=== PATIENT | male | born 1965 | race African-American/Black ===

== ENCOUNTER 2025-07-15 14:39 | Emergency (ER) | payer MEDICARE, MEDICAID ==
[~2025-07-15] VITALS: Ht 172.7 cm; Wt 86.0 kg
[2025-07-15 14:44] VITALS: O2SAT 96
[2025-07-15 16:18] LABS: HEMATOCRIT. 48.1 % (42.0-52.0); HEMOGLOBIN. 16.3 g/dL (14.0-18.0); MEAN PLATELET VOLUME 8.7 fl (7.4-10.4); PLATELET 173 x1000/uL (130-400); RED BLOOD CELL COUNT 5.20 mill/uL (4.7-6.1); RED CELL DISTRIBUTION WIDTH 13.1 % (11.6-14.6)
[2025-07-15 16:34] LABS: CLARITY URINE CLEAR (CLEAR); COLOR URINE RED (YELLOW); GLUCOSE URINE 3+ (NEGATIVE); KETONES URINE NEGATIVE (NEGATIVE); LEUKOCYTE ESTERASE URINE NEGATIVE (NEGATIVE); NITRITE URINE NEGATIVE (NEGATIVE); OCCULT BLOOD URINE 3+ (NEGATIVE); PH URINE 6.5 (4.5-8.0); PROTEIN URINE 1+ (NEGATIVE); SPECIFIC GRAVITY URINE 1.008 (1.005-1.030); UROBILINOGEN URINE 0.2 E.U./dL (0.2-1.0)
[2025-07-15 16:35] LABS: CREATININE 1.4 mg/dL (0.6-1.3); UREA NITROGEN BLOOD 17 mg/dL (9-23)
[2025-07-15 16:36] LABS: PROTEIN TOTAL 8.1 g/dL (6.0-8.3)
[2025-07-15 16:37] LABS: ASPARTATE AMINOTRANSFERASE 35 IU/L (<34); BILIRUBIN DIRECT 0.5 mg/dL (<=3.0); BILIRUBIN TOTAL 1.6 mg/dL (0.1-1.0)
[2025-07-15 16:40] LABS: LYMPHOCYTES % MANUAL 3.0 % (20.0-50.0); MONOCYTES % MANUAL 2.0 % (2.0-8.0); NEUTROPHILS % MANUAL 95.0 % (45.0-75.0); PLATELET ESTIMATE NORMAL
[2025-07-15 17:03] LABS: BACTERIA URINE 1+; RBC URINE 50-100 /hpf (0-2); SQUAMOUS EPITHELIAL CELL URINE FEW /lpf (RARE/1+); WBC URINE 0-2 /hpf (0-2)
[2025-07-15 18:26] VITALS: BP 130/82; PULSE 81; RESP 16; TEMP 36.8; O2SAT 99
== END 2025-07-15 18:57 | disposition home or self-care (01) ==
LOC: ER 14:39 → EDBEDREQ 17:42 → EDBEDREQSVC 17:42 → EDBEDREQTM 17:42 → ER 18:57 → CMPBEDREQ 07-16 08:03
DX: N17.9 Acute kidney failure, unspecified (principal); N39.498 Other specified urinary incontinence; R33.9 Retention of urine, unspecified; I10 Essential (primary) hypertension; N40.1 Benign prostatic hyperplasia with lower urinary tract symptoms
CPT/HCPCS: 36415; 51702; 74176; 80048; 80076; 81003; 85025; 99284